=== PATIENT | female | born 1955 | race Caucasian/White ===

== ENCOUNTER 2022-09-22 17:28 | Emergency (ER) | payer SELFPAY ==
[~2022-09-22] VITALS: Ht 157.5 cm; Wt 74.8 kg
[2022-09-22 18:47] VITALS: BP 144/86
--- NOTE | 2022-09-22 20:28 | NUR ---
PT TO BED 05 VIA W/C
[2022-09-22] MEDS: MORPHINE SULFATE 4 MG/ML SYR IM ONE (21:15)
[2022-09-22] MEDS ORDERED: IBUP-2213 PO (22:12)
[2022-09-22] MEDS ORDERED: ACET-8905 PO (22:12)
[2022-09-22 22:23] VITALS: BP 127/61
--- NOTE | 2022-09-22 22:24 | NUR ---
Patient discharged with v/s stable. Written and verbal after care instructions given and explained. New rx norco and ibuprofen. Patient verbalized understanding. Ambulatory with steady gait. Accompanied by son. All questions addressed prior to discharge. Advised to follow up with PMD.
== END 2022-09-22 22:23 | disposition home or self-care (01) ==
LOC: MED 17:28
DX: S22.080A Wedge compression fracture of T11-T12 vertebra, initial encounter for closed fracture (principal); S22.070A Wedge compression fracture of T9-T10 vertebra, initial encounter for closed fracture; E11.9 Type 2 diabetes mellitus without complications; Z90.710 Acquired absence of both cervix and uterus; Z88.0 Allergy status to penicillin; W18.39XA Other fall on same level, initial encounter; Y92.89 Other specified places as the place of occurrence of the external cause; Y93.89 Activity, other specified; Y99.8 Other external cause status
CPT/HCPCS: 72100; 72220; 96372; 99284; J2270